=== PATIENT | female | born 1995 | race Caucasian/White ===

== ENCOUNTER 2019-11-28 15:27 | Emergency (ER) | payer OTHER, SELFPAY ==
--- NOTE | ~2019-11-28 | XR_ITS ---
EXAMINATION: XR elbow LT min 3V EXAM DATE: 11/28/2019 16:08 INDICATION: Initial encounter following injury, with pain of the left elbow. TECHNIQUE: Left elbow frontal, lateral with flexion, and oblique projections obtained and reviewed. There is no prior study for comparison. FINDINGS: Left elbow anterior humeral line intact. No elbow joint effusion. There are no acute fra ctures or dislocations identified. There is no subcutaneous gas. The soft tissue is unremarkable. There are no radiopaque foreign bodies. IMPRESSION: No acute osseous findings. Reviewed, dictated and finalized at location [facility]. IMPRESSION: No acute osseous findings.
[2019-11-28 15:54] VITALS: BP 137/87; PULSE 91; RESP 18; TEMP 37.4; O2SAT 100
--- NOTE | 2019-11-28 16:12 | ED.GENADULT ---
HPI - General Adult General Chief complaint: Extremity Injury, Upper Stated complaint: Fall Left arm pain Time Seen by Provider: 11/28/19 16:15 Source: patient and RN notes reviewed Mode of arrival: ambulatory Limitations: no limitations History of Present Illness HPI narrative: 24-year-old female presents with complains of LT elbow tenderness and swelling for 1 day. No treatment. Carol says she was going down the [place] and fell hitting elbow on stepps causing pain, numbness, and tingling initially. No further numbness or tingling but pain continuous with movement and palpation of LT elbow. No radiation of pain. Exacerbation factor consist of movement. The relieving factor is immobility. Dominant hand is the LEFT HAND. No suspected abuse. Denies hitting head with fall. Denies loss of consciousness, dizziness, or seizure activity. Denies fever or chills. Carol denies being , currently on menstrual cycle which started 11/26/2019. Denies headaches, weakness, fatigue, or myalgia. Denies chest pain or dyspnea. Denies cough, rhinorrhea, congestion, sore throat, nausea, vomiting, abdominal pain, and diarrhea. Tolerating po intake well. Denies recent traveling. Denies concerns for COVID-19 or exposures been home since [id number] order except for essential household needs and return home. Currently on furlough from work per Carol. Remains active. Some parts of this dictation were generated by voice recognition software and may contain typographical and/or grammatical inaccuracies. Related Data Home Medications Medication Instructions Recorded Confirmed albuterol sulfate [ProAir HFA] 2 puff INHALATION Q4-6H 11/28/19 11/28/19 buspirone 5 mg PO BID 11/28/19 11/28/19 escitalopram oxalate [Lexapro] 10 mg PO DAILY 11/28/19 11/28/19 Allergies Allergy/AdvReac Type Severity Reaction Status Date / Time Penicillins Allergy Mild DIARRHEA/VO Unverified 11/13/08 13:26 MITING POLLEN,MOLD,CATS Allergy Mild SNEEZING, Uncoded 04/02/04 11:56 EYE IRRITATION Review of Systems Review of Systems: Narrative: CONSTITUTIONAL: Denies fever, chills, sweats. EYES: Denies visual changes, redness, discharge. ENT: Denies rhinorrhea, congestion, sore throat, otalgia. CARDIOVASCULAR: Denies chest pain, palpitations, edema. RESPIRATORY: Denies dyspnea, wheezing, cough. GASTROINTESTINAL: Denies abdominal pain, nausea, vomiting, diarrhea. GENITOURINARY: Denies dysuria, hematuria, abnormal discharge SKIN: Denies rash or itching. MUSCULOSKELETAL: Denies acute back pain or myalgia. Complains of LT elbow pain and swelling. NEUROLOGIC: Denies numbness or focal weakness. PSYCHIATRIC: Denies anxiety or depression. [facility] Past Medical History Medical History (Updated 11/29/19 @ 00:01 by Fide Chu) Anxiety Asthma Depression History of removal of tympanostomy tube Surgical History Surgical History (Updated 11/28/19 @ 16:51 by VANI Charlton) History of adenoidectomy History of tonsillectomy History of tympanostomy Family History Family History (Updated 11/28/19 @ 16:54 by VANI Charlton) Grandparent Hypertension Diabetes mellitus Cerebrovascular accident Grandparent Hypertension Cerebrovascular accident Social History Social History (Updated 11/28/19 @ 16:55 by VANI Charlton) Smoking status: Never smoker Second hand tobacco smoke exposure: Yes Alcohol intake: current Substance use: current Substance use type: marijuana Living arrangements: with family Occupation/Education: occupation Gender identity (if verbalized by the patient): Female Exam Narrative: Exam Narrative: GENERAL APPEARANCE: The patient is a well-developed, well-nourished child who is awake, active. Interacts appropriately with surroundings and examiner, in no acute distress. HEAD: Atraumatic. Normocephalic. No temporal or scalp tenderness. EYES: Moist and bright. Sclera a
--- NOTE | 2019-11-28 16:34 | PC.NURSE ---
Pt aware we are waiting on xray results. No complaints at this time.
== END 2019-11-28 16:50 | disposition home or self-care (01) ==
PROVIDERS: Emergency Provider Nurse Practitioner Family; PCP Internal Medicine
DX: S50.02XA Contusion of left elbow, initial encounter (principal); W10.9XXA Fall (on) (from) unspecified stairs and steps, initial encounter
CPT/HCPCS: 73080; 99213; G0463

== ENCOUNTER 2020-10-30 14:45 | Outpatient (CLI) | payer OTHER, SELFPAY ==
[2020-10-30 15:26] LABS: Basophils Percent Auto 0.6 % (0.2-1.2); Eosinophils Absolute Auto 0.2 K/mm3 (0-0.3); Eosinophils Percent Auto 2.8 % (0-4.4); Hematocrit 34.2 % (37.0-47.0); Hemoglobin 10.8 g/dL (12.0-15.0); Immature Granulocyte Absolute 0.01 K/mm3 (0.00-0.031); Immature Granulocyte Percent A 0.2 % (0-0.5); Lymphocytes Absolute Auto 1.98 K/mm3 (0.9-3.2); Lymphocytes Percent Auto 32.1 % (18.3-44.2); Mean Corpuscular HGB Conc 31.6 g/dl (32-36); Mean Corpuscular Hemoglobin 27.2 pg (26-34); Mean Corpuscular Volume 86.1 fl (80-100); Mean Platelet Volume 10.5 fl (7.4-10.4); Monocytes Absolute Auto 0.6 K/mm3 (0.1-0.6); Monocytes Percent Auto 9.6 % (2.6-8.5); Neutrophils Absolute Auto 3.4 K/mm3 (1.3-6.7); Neutrophils Percent Auto 54.7 % (45.5-73.1); Platelet Count Result 370 k/mm3 (150-375); Red Blood Count 3.97 M/mm3 (4.2-5.4); Red Cell Distribution Width 14.9 % (11.5-14.5); White Blood Count 6.2 K/mm3 (4.5-10.0)
[2020-10-30 17:02] LABS: Free T4 Free Thyroxine 0.81 ng/mL (0.78-2.19)
[2020-10-30 17:33] LABS: Alanine Aminotransferase 13 U/L (4-35); Albumin Level 4.7 g/dL (3.5-5.1); Alkaline Phosphatase 62 U/L (38-126); Anion Gap 7 mmol/L (8-16); Aspartate Amino Transferase 23 U/L (14-36); Bilirubin,Total 0.3 mg/dL (0.2-1.3); Blood Urea Nitrogen 11 mg/dL (7-17); Calcium 9.2 mg/dL (8.4-10.2); Carbon Dioxide 28 mmol/L (22-30); Chloride 106 mmol/L (98-107); Estimated Glomerular Filt Rate > 60; Glucose 95 mg/dL (65-105); Potassium 3.9 mmol/L (3.4-5.0); Sodium 141 mmol/L (137-145)
[2020-11-02 10:44] LABS: Vitamin B1 40 nmol/L (8-30)
[2020-11-03 11:46] LABS: Vitamin B6 8.4 ng/mL (2.1-21.7)
[2020-11-05 13:12] LABS: Triiodothyronine T3 Free 2.7 pg/mL (2.3-4.2)
== END 2020-10-30 14:46 | disposition home or self-care (01) ==
LOC: ANHLAB 14:48
PROVIDERS: PCP Internal Medicine; Visit Provider Internal Medicine
DX: F41.8 Other specified anxiety disorders (principal)
CPT/HCPCS: 36415; 80053; 82607; 84207; 84425; 84439; 84443; 84481; 85025

== ENCOUNTER 2021-02-18 07:22 | Outpatient (CLI) | payer OTHER, SELFPAY ==
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
== END 2021-02-18 07:23 | disposition home or self-care (01) ==
LOC: ANHIMG 07:28
PROVIDERS: PCP Internal Medicine; Visit Provider Internal Medicine
DX: R51.9 Headache, unspecified (principal)
CPT/HCPCS: 70450

== ENCOUNTER 2022-07-20 11:09 | Emergency (ER) | payer OTHER, SELFPAY ==
--- NOTE | ~2022-07-20 | XR_ITS ---
EXAMINATION: XR shoulder RT min 2V DATE: 07/20/2022 11:32 INDICATION: Right shoulder pain TECHNIQUE: AP internally rotated, AP oblique externally rotated, axillary and transscapular Y views o f the right shoulder were obtained. COMPARISON: None FINDINGS: Normal alignment. No fracture. Glenohumeral joint is normal. Acromioclavicular joint is normal. Soft tissues are unremarkable. Visualized portion of the right lung are clear. IMPRESSION: Negative right shoulder radiographs. Reviewed, dictated and finalized at location [facility]. SOMNOGRAPHY TECH
[2022-07-20 11:10] VITALS: BP 138/90; PULSE 83; RESP 18; TEMP 36.6; O2SAT 97
--- NOTE | 2022-07-20 11:37 | ED.UPPEXIN ---
HPI - Extremity Injury (Upper) General Chief Complaint: Extremity Injury, Upper Stated Complaint: Right Shoulder Pain Time Seen by Provider: 07/20/22 11:37 Source: patient Mode of arrival: ambulatory Limitations: no limitations History of Present Illness HPI narrative: 26-year-old female presents with complaint of right shoulder pain for several years. States 1st started when she was in high school. 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 Took Advil prior to arrival. States no right shoulder pain at this time. Denies injury. Has not seen her PCP for this problem. All systems reviewed and negative except as noted above. Related Data Home Medications Medication Instructions Recorded Confirmed bupropion HCl 300 mg 24 hr tablet, 300 mg PO DAILY 07/20/22 07/20/22 extended release fluoxetine 20 mg capsule 20 mg DAILY 07/20/22 07/20/22 Allergies Allergy/AdvReac Type Severity Reaction Status Date / Time Penicillins AdvReac Mild DIARRHEA/VO Verified 07/20/22 11:23 MITING POLLEN,MOLD,CATS Allergy Mild SNEEZING, Uncoded 07/20/22 11:23 EYE IRRITATION Review of Systems Review of Systems: CONSTITUTIONAL: Denies fever, chills, or sweats. EYES: Denies visual changes, redness, or discharge. ENT: Denies rhinorrhea, congestion, sore throat, or otalgia. CARDIOVASCULAR: Denies chest pain, palpitations, or edema. RESPIRATORY: Denies cough or dyspnea. GASTROINTESTINAL: Denies abdominal pain, nausea, vomiting, or diarrhea. GENITOURINARY: Denies dysuria or hematuria. SKIN: Denies rash or itching. MUSCULOSKELETAL: Denies back pain, joint pain, or myalgia. Reports right shoulder pain. NEUROLOGIC: Denies headache, numbness, or weakness. PSYCHIATRIC: Denies anxiety or depression. All other systems reviewed are negative, except as documented in HPI. [facility] Past Medical History Medical History (Updated 07/20/22 @ 11:44 by Tracy Flynn NP) Anxiety Asthma Depression History of removal of tympanostomy tube Surgical History Surgical History (Updated 11/28/19 @ 16:51 by VANI Charlton) History of adenoidectomy History of tonsillectomy History of tympanostomy Family History Family History (Updated 11/28/19 @ 16:54 by VANI Charlton) Grandparent Hypertension Diabetes mellitus Cerebrovascular accident Grandparent Hypertension Cerebrovascular accident Social History Social History (Updated 11/28/19 @ 16:55 by VANI Charlton) Smoking status: Never smoker Second hand tobacco smoke exposure: Yes Alcohol intake: current Substance use: current Substance use type: marijuana Gender identity (if verbalized by the patient): Female Comments At time of signature, agree with nursing past medical, surgical, social and family history. There is no relevant family history pertinent to the presenting complaint. Exam Narrative: GENERAL: This is a well-nourished, well-developed patient, in no apparent distress. HEAD: normocephalic, atraumatic. EYES: PERRL. Sclera clear/white. Vision is grossly intact. EARS: External ears normal NOSE: External nose normal NECK: Neck supple, non-tender without lymphadenopathy, masses or thyromegaly. CARDIOVASCULAR: Regular rate and rhythm without murmurs, gallops, or rubs. RESPIRATORY: Clear to auscultation. Breath sounds equal bilaterally. No wheezes, rales, or rhonchi. SKIN: warm, Dry, intact with no suspicious lesions or rash, good texture and turgor. NEURO: awake, alert, and oriented to person, place and time. There were no obvious focal neurologic abnormalities. EXTREMITIES: Normal range of motion to right shoulder. Nontender. Unable to reproduce pain on exam. Course Course Level of Care: Express Care Visit Vital Signs Vital signs: Vital Signs Temperature 36.6 C 07/20/22 11:10 Pulse Rate 83 07/20/22 11:10 Respiratory Rate 18 07/20/22 11:10
== END 2022-07-20 11:47 | disposition home or self-care (01) ==
PROVIDERS: Emergency Provider Nurse Practitioner Family; PCP Internal Medicine
DX: M25.511 Pain in right shoulder (principal); G89.29 Other chronic pain; F41.9 Anxiety disorder, unspecified; F32.9 Major depressive disorder, single episode, unspecified
CPT/HCPCS: 73030; 99213; G0463

== ENCOUNTER 2022-07-30 06:35 | Outpatient (CLI) | payer OTHER, SELFPAY ==
--- NOTE | ~2022-07-30 | MR_ITS ---
MRI of the right shoulder Technique: Axial proton-density fat-sat images, coronal proton density fat-sat and T2 fat-sat images, and sagittal T1-weighted and T2 fat-sat images were acquired. Clinical History: Pain Findings: There is no significant degenerative change at the AC joint. Coracoclavicular, coracoacromi al, and coracohumeral ligaments are intact. Supraspinatus and infraspinatus tendons are intact, without partial or full-thickness tear. Subscapul chica tendon is intact. Tendon of long head of the biceps is intact. There is a tear of the posterior superior labrum, with associated 2.8 x 1.5 x 1.[address] extending into the spinoglenoid notch region. Questionable extension of tear to the superior and a nterosuperior portions of the labrum. Inferior glenohumeral ligament is intact. No degenerative change or effusion. The glenohumeral joint. No fluid distention of the subacromial/subdeltoid bursa. No muscle atrophy or edema identified. Impression: Posterior superior labral tear with associated 2.8 x 1.5 x 1.8 cm paralabral cyst extending into the spinoglenoid notch region. No muscle atrophy or edema to suggest acute or chronic nerve compression. Questionable extension of labral tear to the superior and anterosuperior portions. Reviewed, dictated and finalized at [facility]. [employer] Impression: Posterior superior labral tear with associated 2.8 x 1.5 x 1.[address] extending into the spinoglenoid notch region. No muscle atrophy or edema to suggest acute or chronic nerve compression. Questionable extension of labral tear to the superior and anterosuperior portio ns.
== END 2022-07-30 06:36 | disposition home or self-care (01) ==
PROVIDERS: PCP Internal Medicine; Visit Provider Internal Medicine
DX: M25.511 Pain in right shoulder (principal); S43.431A Superior glenoid labrum lesion of right shoulder, initial encounter
CPT/HCPCS: 73221